=== PATIENT | male | born 1995 | race Caucasian/White ===

== ENCOUNTER 2017-10-12 02:20 | Emergency (ER) | payer OTHER ==
[~2017-10-12] VITALS: Ht 172.7 cm; Wt 44.1 kg
[2017-10-12 02:23] VITALS: Ht 172.7 cm; Wt 44.1 kg
--- NOTE | 2017-10-12 03:03 | EMERGENCY ROOM VISIT NOTE ---
History Report prepared by [facility]: Carla Dueñas Under the Supervision of: Dr. Isaura Amador D.O. First contact with patient: 02:22 Chief Complaint: MENTAL HEALTH EVALUATION Stated Complaint: MENTAL HEALTH EVALUATION History of Present Illness The patient is a 21 year old male who presents to the Emergency Room for a mental health evaluation. The patient has been feeling anxious and depressed recently. He found out that his girlfriend of 2 years had been cheating on him. He denies any thoughts of hurting himself. He has not been sleeping or eating well recently. He tried taking Zzzquil today to sleep. He does not have a counselor, but notes that he has people he trusts with whom he has been speaking. He denies any headaches, change in bowel movement, or any other symptoms. He denies any recent injury or illness. He does not smoke. He denies any alcohol or drug use. 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 Review of Systems See HPI for pertinent positives & negatives. A total of 10 systems reviewed and were otherwise negative. Past Medical & Surgical Medical Problems: (1) No chronic problems Family History No pertinent family history stated. Social History Smoking Status: Never Smoker Drug Use: none Marital Status: single Current/Historical Medications No Active Prescriptions or Reported Meds Allergies Coded Allergies: No Known Allergies (Unverified , 10/12/17) Physical Exam Vital Signs Date Time Temp Pulse Resp B/P (MAP) Pulse Ox O2 Delivery O2 Flow Rate FiO2 10/12/17 05:13 36.7 90 18 130/78 98 Room Air 10/12/17 02:23 36.7 88 18 125/82 98 Room Air Physical Exam GENERAL: alert, well appearing, well nourished, no distress, non-toxic EYE EXAM: normal conjunctiva, PERRL and EOM's grossly intact OROPHARYNX: no exudate, no erythema, lips, buccal mucosa, and tongue normal and mucous membranes are moist NECK: supple, no nuchal rigidity, no adenopathy, non-tender LUNGS: Clear to auscultation. Normal chest wall mechanics HEART: no murmurs, S1 normal and S2 normal ABDOMEN: abdomen soft, non-tender, normo-active bowel sounds, no masses, no rebound or guarding. BACK: Back is symmetrical on inspection and there is no deformity, no midline tenderness, no CVA tenderness. SKIN: no rashes and no bruising UPPER EXTREMITIES: upper extremities are grossly normal. LOWER EXTREMITIES: No pitting edema. NEURO EXAM: Normal sensorium, cranial nerves II-XII grossly intact, normal speech, no gross weakness of arms, no gross weakness of legs. PSYCH: Withdrawn, poor eye contact. Medical Decision & Procedures Medications Administered Medications (Trade) Dose Ordered Sig/Alexandra Route Start Time Stop Time Status Last Admin Dose Admin Lorazepam (Ativan 1MG Home Pack) 1 homepack UD ONCE PO 10/12/17 05:00 10/12/17 05:01 DC 10/12/17 05:08 1 HOMEPACK ED Course 0236: The patient was evaluated in room A5. A complete history and physical exam was performed. 0440: The patient was evaluated by the medical case worker. He was found suitable for discharge. He was discharged home. Medical Decision Differential diagnosis: Etiologies such as mood disorder, infection, hypoglycemia, electrolyte abnormalities, cardiac sources, intracerebral event, toxicologic, neurologic, as well as others were entertained. I do not feel patient is a danger to himself or others. Patient with symptoms of anxiety and depression due to recent breakup with go friend as this was his first girlfriend and adult relationship. Patient with difficulty coping with stress at this time, and manifesting with physical symptoms also. Father concerned due to patient's perseveration on the former girlfriend and situation. Did not feel patient meets criteria for involuntary admission. Patient's father's taking him home. Discussed with him benefits to seeking a counselor or therapist to help deal with acute stress and coping mechanisms. Please see note by medical case worker regarding their additional conversation and plan. Medication Reconcilliation Current Medication List: was personally reviewed by me Blood Pressure Screening Patient's blood pressure: Normal blood pressure Blood pressure disposition: Did not require urgent referral Impression Primary Impression: Acute anxiety Additional Impression: Depression Scribe Attestation The scribe's documentation has been prepared under my direction and personally reviewed by me in its entirety. I confirm that the note above accurately reflects all work, treatment, procedures, and medical decision making performed by me. Departure Information Dispostion Home / Self-Care Prescriptions No Active Prescriptions or Reported Meds Referrals No Doctor, Assigned (PCP) Patient Instructions My [facility] Additional Instructions Please follow-up with a counselor to help process your recent stress and learn appropriate coping mechanisms. Problem Qualifiers Additional Impression: Depression Depression Type: unspecified Qualified Codes: F32.9 - Major depressive disorder, single episode, unspecified
[2017-10-12] MEDS ORDERED: ATIVAN 1MG HOMEPACK PO ONE (05:00)
[2017-10-12 05:13] VITALS: BP 130/78; PULSE 90; TEMP 36.7; O2SAT 98
== END 2017-10-12 05:17 | disposition home or self-care (01) ==
LOC: C.EDB 02:21 → C.EDA 05:17
DX: F41.9 Anxiety disorder, unspecified (principal); F32.9 Major depressive disorder, single episode, unspecified